=== PATIENT | male | born 1955 | race Caucasian/White ===

== ENCOUNTER 2017-05-18 10:37 | Outpatient (CLI) | payer OTHER ==
[2017-05-18 11:20] LABS: INR-International Normal Ratio 2.2; Prothrombin Time 25.4 SEC (12.0-14.7)
== END 2017-05-18 10:38 | disposition home or self-care (01) ==
LOC: BURLAB 10:37
PROVIDERS: ATTEND Internal Medicine Cardiovascular Disease
DX: Z51.81 Encounter for therapeutic drug level monitoring (principal); I50.9 Heart failure, unspecified; Z95.811 Presence of heart assist device; Z79.01 Long term (current) use of anticoagulants
CPT/HCPCS: 36415; 83615; 85610

== ENCOUNTER 2017-05-29 10:44 | Outpatient (CLI) | payer OTHER ==
[2017-05-29 11:23] LABS: Prothrombin Time 23.1 SEC (12.0-14.7)
== END 2017-05-29 10:45 | disposition home or self-care (01) ==
LOC: BURLAB 10:44
PROVIDERS: ATTEND Internal Medicine Cardiovascular Disease
DX: Z51.81 Encounter for therapeutic drug level monitoring (principal); I50.9 Heart failure, unspecified; Z95.811 Presence of heart assist device; Z79.01 Long term (current) use of anticoagulants
CPT/HCPCS: 36415; 83615; 85610

== ENCOUNTER 2017-06-01 11:35 | Outpatient (CLI) | payer OTHER ==
[2017-06-01 12:02] LABS: INR-International Normal Ratio 2.2; Prothrombin Time 25.2 SEC (12.0-14.7)
== END 2017-06-01 11:36 | disposition home or self-care (01) ==
LOC: BURLAB 11:35
PROVIDERS: ATTEND Internal Medicine Cardiovascular Disease
DX: I50.9 Heart failure, unspecified (principal); Z95.811 Presence of heart assist device
CPT/HCPCS: 36415; 83615; 85610

== ENCOUNTER 2017-06-05 08:59 | Outpatient (CLI) | payer BC, OTHER ==
[2017-06-05 09:29] LABS: INR-International Normal Ratio 1.9; Prothrombin Time 22.2 SEC (12.0-14.7)
== END 2017-06-05 09:00 | disposition home or self-care (01) ==
LOC: BURLAB 08:59
PROVIDERS: ATTEND Internal Medicine Cardiovascular Disease
DX: Z51.81 Encounter for therapeutic drug level monitoring (principal); I50.9 Heart failure, unspecified; Z95.811 Presence of heart assist device; Z79.01 Long term (current) use of anticoagulants
CPT/HCPCS: 36415; 83615; 85610

== ENCOUNTER 2017-06-08 10:22 | Outpatient (CLI) | payer BC ==
[2017-06-08 11:20] LABS: INR-International Normal Ratio 1.9; Prothrombin Time 21.9 SEC (12.0-14.7)
== END 2017-06-08 10:23 | disposition home or self-care (01) ==
LOC: BURLAB 10:22
PROVIDERS: ATTEND Internal Medicine Cardiovascular Disease
DX: I50.9 Heart failure, unspecified (principal); Z95.811 Presence of heart assist device
CPT/HCPCS: 36415; 83615; 85610

== ENCOUNTER 2017-06-22 10:19 | Outpatient (CLI) | payer BC ==
[2017-06-22 11:01] LABS: INR-International Normal Ratio 1.8; Prothrombin Time 21.8 SEC (12.0-14.7)
== END 2017-06-22 10:20 | disposition home or self-care (01) ==
LOC: BURLAB 10:19
PROVIDERS: ATTEND Internal Medicine Cardiovascular Disease
DX: I50.9 Heart failure, unspecified (principal); Z95.811 Presence of heart assist device
CPT/HCPCS: 36415; 83615; 85610

== ENCOUNTER 2017-06-29 09:21 | Outpatient (CLI) | payer BC ==
[2017-06-29 09:48] LABS: Prothrombin Time 23.6 SEC (12.0-14.7)
== END 2017-06-29 09:22 | disposition home or self-care (01) ==
LOC: BURLAB 09:21
PROVIDERS: ATTEND Internal Medicine Cardiovascular Disease
DX: Z51.81 Encounter for therapeutic drug level monitoring (principal); I50.9 Heart failure, unspecified; Z95.811 Presence of heart assist device; Z79.01 Long term (current) use of anticoagulants
CPT/HCPCS: 36415; 83615; 85610

== ENCOUNTER 2020-04-13 21:28 | Emergency (ER) | payer BC ==
--- NOTE | 2020-04-13 22:47 | CT ---
CT BRAIN WITHOUT CONTRAST: Date: 04/13/[address] shows normal sized ventricles with no shift. No intracranial bleeding or extra-axial hematoma seen. There is already some prominent patchy hypolucent areas throughout the deep white mat ter bilaterally suggesting chronic ischemic change. There is no evidence of acute stroke, mass, or ed jenifer. Small strokes would be missed against this background. The skull is normal in appearance and the visible paranasal sinuses and mastoid air cells are clear, except for some minor opacification in th e tip of the right mastoid process. IMPRESSION: No acute intracranial findings. Chronic ischemic changes. POS: HOME
[2020-04-13 22:49] LABS: #Eosinphils 0.1 thou/uL (0.0-0.7); #Lymphocytes 1.2 thou/uL (1.20-3.40); #Monocytes 0.9 thou/uL (0.11-0.59); #Neutrophils 4.8 thou/uL (1.40-6.50); %Basophils 0.6 % (0.0-1.0); %Lymphocytes 17.3 % (21.0-51.0); %Monocytes 12.2 % (0.0-10.0); %Neutrophils 68.9 % (42.0-75.0); Hemoglobin 10.9 g/dL (14.0-18.0); Mean Corpuscular Volume 99.9 fL (78.0-98.0); Mean Platelet Volume 9.5 fL (7.4-10.4); Platelet Count 154 thou/uL (130-400); RBC Distribution Width 12.5 % (11.5-14.5); Red Blood Cell (RBC) Count 3.53 mill/uL (4.70-6.10); White Blood Cell (WBC) Count 6.9 thou/uL (4.8-10.8)
[2020-04-13] MEDS ORDERED: Bacitracin 1 PK ONE (22:53)
[2020-04-13 22:54] LABS: ALT (SGPT) Less than 7 U/L (8-55); AST (SGOT) 16 U/L (5-34); Albumin 4.5 g/dL (3.4-4.8); Alkaline Phosphatase 62 U/L (40-110); Anion Gap 20 mmol/L (10-20); BUN (Urea Nitrogen) 14 mg/dL (8.4-25.7); Bilirubin, Total 1.4 mg/dL (0.2-1.2); Calc. Creatinine Clearance 0 mL/min (70-130); Calcium 10.3 mg/dL (7.8-10.44); Carbon Dioxide 27 mmol/L (23-31); Chloride 95 mmol/L (98-107); Estimated GFR-MDRD 72; Globulin 2.7 g/dL (2.4-3.5); Glucose 128 mg/dL (80-115); Potassium 3.5 mmol/L (3.5-5.1); Protein, Total 7.2 g/dL (5.8-8.1); Sodium 138 mmol/L (136-145)
--- NOTE | 2020-04-13 22:57 | CT ---
CT OF THE CERVICAL SPINE: Date: 04/13/[address] of the cervical spine was performed following trauma. Axial slices were acquired, followed by coronal and sagittal reconstructions. FINDINGS: No fracture, dislocation, or soft tissue swelling seen. There is some mild disc space narrowing at C5 -C6 and C6-C7. The C1 to dens distance is normal. Findings by level follow: C1-C2: No acute findings. C2-C3: There may be a small central bulge of the disc without significant impingement. C3-C4: There may be a small central bulge of this disc without significant impingement. There is mil d left foraminal narrowing. C4-C5: Significant osteophytes causing moderate to severe bilateral foraminal stenosis. The AP diame ter of the spinal canal at this level is approximately 8.0 mm. C5-C6: There is also probably some concentric bulging of this disc with mild left foraminal narrowin g. C6-C7: No acute findings. Mild left foraminal narrowing. C7-T1: No acute findings. T1-T2: No acute findings. Lung apices are clear. IMPRESSION: Prominent degenerative changes as noted, but no acute traumatic fracture seen. Preliminary report called to Dr. Sparks at 2218 hours on 04/13/2020. CODE CR. POS: HOME
--- NOTE | 2020-04-13 23:00 | RAD ---
PORTABLE CHEST: Date: 04/13/2020 An AP portable film at 2020 hours is compared with a 11/10/2016 study done at [facility]. The heart is more normal in size today than it was before. There is no vascular congestion, edema, or gross pleural effusion. Numerous calcifications are seen in the right lower chest which were present previously and had not changed. There is an equivocal patchy infiltrative area just to the left of the aortic arch. I cannot tell if this is real or a confluence of markings. There are some linear infiltrates just above the left heart border which were not present previously. This may be scarring or atelectasis. Clips are noted in th e right axillary region from a prior operative procedure. The mediastinum showed no widening or abnor mality. IMPRESSION: Equivocal patchy infiltrate versus confluence of markings in the left upper lobe near the aortic arch . A follow-up PA film might be useful. Depending upon the patient's symptoms, further imaging may be subsequently needed. CODE T. POS: HOME
[2020-04-13 23:31] LABS: Bilirubin Negative (Negative); Blood, Urine Negative (Negative); Clarity Clear (Clear); Glucose, Urine (Dipstick) Negative (Negative); Ketone, Urine Negative (Negative); Leukocyte Negative (Negative); Nitrite Negative (Negative); Protein, Urine (Dipstick) Negative (Neg-Trace); Specific Gravity, Urine 1.015 (1.005-1.030); Urobilinogen 0.2 mg/dL (Less than 2)
== END 2020-04-13 23:55 | disposition left against medical advice (07) ==
LOC: BURERS 21:28
DX: R55 Syncope and collapse (principal); S01.311A Laceration without foreign body of right ear, initial encounter; S01.01XA Laceration without foreign body of scalp, initial encounter; S60.811A Abrasion of right wrist, initial encounter; I13.2 Hypertensive heart and chronic kidney disease with heart failure and with stage 5 chronic kidney disease, or end stage renal disease; I50.9 Heart failure, unspecified; N18.6 End stage renal disease; Z79.82 Long term (current) use of aspirin; Z79.899 Other long term (current) drug therapy
CPT/HCPCS: 70450; 71045; 72125; 80053; 81003; 84484; 85025; 93005; 94760

== ENCOUNTER 2021-09-08 10:58 | Emergency (ER) | payer BC, MEDICARE ==
[2021-09-08 11:50] LABS: #Basophils 0.1 thou/uL (0.0-0.2); #Lymphocytes 1.1 thou/uL (1.20-3.40); #Monocytes 1.2 thou/uL (0.11-0.59); #Neutrophils 14.1 thou/uL (1.40-6.50); %Basophils 0.5 % (0.0-1.0); %Eosinophils 0.1 % (0.0-10.0); %Lymphocytes 6.9 % (21.0-51.0); %Monocytes 7.2 % (0.0-10.0); %Neutrophils 85.4 % (42.0-75.0); Hemoglobin 11.6 g/dL (14.0-18.0); Mean Corpuscular HGB CONC 32.2 g/dL (32.0-36.0); Mean Corpuscular Hemoglobin 27.2 pg (27.0-31.0); Mean Corpuscular Volume 84.5 fL (78.0-98.0); Mean Platelet Volume 9.1 fL (7.4-10.4); Platelet Count 197 thou/uL (130-400); RBC Distribution Width 14.3 % (11.5-14.5); Red Blood Cell (RBC) Count 4.27 mill/uL (4.70-6.10); White Blood Cell (WBC) Count 16.5 thou/uL (4.8-10.8)
[2021-09-08 12:03] LABS: ALT (SGPT) 11 U/L (8-55); AST (SGOT) 14 U/L (5-34); Albumin 4.1 g/dL (3.4-4.8); Alkaline Phosphatase 66 U/L (40-110); Anion Gap 18 mmol/L (10-20); BUN (Urea Nitrogen) 15 mg/dL (8.4-25.7); Bilirubin, Total 1.5 mg/dL (0.2-1.2); Calc. Creatinine Clearance 0 mL/min (70-130); Calcium 10.2 mg/dL (7.8-10.44); Carbon Dioxide 29 mmol/L (23-31); Chloride 95 mmol/L (98-107); Glucose 174 mg/dL (80-115); Protein, Total 7.1 g/dL (5.8-8.1); Sodium 139 mmol/L (136-145)
[2021-09-08 12:12] LABS: Potassium 2.8 mmol/L (3.5-5.1)
[2021-09-08] MEDS ORDERED: Potassium Chloride 20 MEQ TAB ONE (12:23)
[2021-09-08] MEDS ORDERED: Piperacillin/Tazobactam 4.5 GM VIAL ONE (12:23)
[2021-09-08] MEDS ORDERED: Sodium Chloride 0.9% 100 ML ONE (12:24)
[2021-09-08 12:27] LABS: Prothrombin Time 13.2 sec (12.0-14.7)
[2021-09-08 13:23] LABS: SARS-CoV-2 NAA Rapid Test Not Detected (NotDetected)
[2021-09-08 14:23] LABS: Lactic Acid 2.7 mmol/L (0.5-2.2)
[2021-09-08] MEDS ORDERED: Dexamethasone 4 mg/ml Vial ONE (14:53)
== END 2021-09-08 15:31 | disposition short-term general hospital (02) ==
LOC: BURERS 10:58
DX: J18.9 Pneumonia, unspecified organism (principal); E87.6 Hypokalemia; Z20.822 Contact with and (suspected) exposure to COVID-19; I13.2 Hypertensive heart and chronic kidney disease with heart failure and with stage 5 chronic kidney disease, or end stage renal disease; I50.9 Heart failure, unspecified; E11.22 Type 2 diabetes mellitus with diabetic chronic kidney disease; N18.6 End stage renal disease; Z94.0 Kidney transplant status; Z94.1 Heart transplant status; Z79.82 Long term (current) use of aspirin; Z79.84 Long term (current) use of oral hypoglycemic drugs; Z79.899 Other long term (current) drug therapy
CPT/HCPCS: 36415; 71045; 80053; 83605; 83880; 84484; 85025; 85610; 85730; 87040; 93005; 94760; 96365; 96375; J1100; J2543; J3490; U0002

== ENCOUNTER 2022-12-26 09:43 | Inpatient (IN) | payer MEDICARE, BC ==
[2022-12-26] MEDS ORDERED: Acetaminophen 500 MG TAB PO PRN (16:07)
[2022-12-26] MEDS ORDERED: Polyethylene Glycol 3350 17 GM Packet PO PRN (16:07)
[2022-12-26] MEDS ORDERED: Fluticasone Propionate Nasal Spray 16 gm Bottle NASAL PRN (16:07)
[2022-12-26] MEDS ORDERED: Bisacodyl 5 MG TAB PO PRN (16:11)
[2022-12-26] MEDS ORDERED: Bisacodyl 10 MG SUPP PR PRN (16:11)
[2022-12-26] MEDS ORDERED: Acetaminophen 325 MG TAB PO PRN (16:11)
[2022-12-26 16:26] VITALS: BMI 17.2
[2022-12-26] MEDS ORDERED: Dextrose 5% in Water 1,000 ML IV PRN (16:54)
[2022-12-26] MEDS ORDERED: Dextrose 50% Abboject 50 ML SYRINGE SLOW IVP PRN (16:54)
[2022-12-26] MEDS ORDERED: HumaLOG 300 UNITS/3 ML VIAL SC PRN (16:54)
[2022-12-26] MEDS: metFORMIN 500 MG TAB PO SCH (18:43)
[2022-12-26] MEDS: Tamsulosin HCl 0.4 MG CAP PO SCH (18:43)
[2022-12-26] MEDS: Atorvastatin Calcium 40 MG TAB PO SCH (21:44)
[2022-12-26] MEDS: Mirtazapine 15 MG TAB PO SCH (21:44)
[2022-12-26] MEDS: Carbidopa/Levodopa 25-100 mg Tablet PO SCH (21:45)
[2022-12-26] MEDS: Cefepime 1 GM in Sodium Chloride 0.9% 100 ML IVPB SCH (21:46)
[2022-12-26] MEDS: Hydrocortisone 10 mg Tablet PO SCH (21:46)
[2022-12-26] MEDS: Magnesium Oxide 400 MG TAB PO SCH (21:46)
[2022-12-26] MEDS ORDERED: Cefepime 1 GM VIAL IVPB SCH (22:00)
[2022-12-27 05:47] LABS: ALT (SGPT) 19 U/L (8-55); AST (SGOT) 22 U/L (5-34); Albumin 3.6 g/dL (3.4-4.8); Alkaline Phosphatase 87 U/L (40-110); Anion Gap 12 mmol/L (10-20); BUN (Urea Nitrogen) 16 mg/dL (8.4-25.7); Bilirubin, Total 0.4 mg/dL (0.2-1.2); Calc. Creatinine Clearance 80 mL/min (70-130); Calcium 9.1 mg/dL (7.8-10.44); Carbon Dioxide 25 mmol/L (23-31); Chloride 108 mmol/L (98-107); Estimated GFR 100; Globulin 3.6 g/dL (2.4-3.5); Glucose 164 mg/dL (80-115); Potassium 3.3 mmol/L (3.5-5.1); Protein, Total 7.2 g/dL (5.8-8.1); Sodium 142 mmol/L (136-145)
[2022-12-27 05:49] LABS: Hemoglobin 9.3 g/dL (14.0-18.0); Mean Corpuscular HGB CONC 32.6 g/dL (32.0-36.0); Mean Corpuscular Hemoglobin 27.2 pg (27.0-31.0); Mean Corpuscular Volume 83.4 fl (78.0-98.0); Mean Platelet Volume 9.7 fL (7.4-10.4); Platelet Count 216 10x3/uL (130-400); RBC Distribution Width 19.2 % (11.5-14.5); Red Blood Cell (RBC) Count 3.43 mill/uL (4.70-6.10); White Blood Cell (WBC) Count 6.7 10x3/uL (4.8-10.8)
[2022-12-27] MEDS: Cefepime 1 GM in Sodium Chloride 0.9% 100 ML IVPB SCH ×3 (05:50→22:00)
[2022-12-27 05:53] LABS: #Basophils 0.1 thou/uL (0.0-0.2); #Eosinphils 0.1 thou/uL (0.0-0.7); #Lymphocytes 1.3 thou/uL (1.20-3.40); #Monocytes 0.7 thou/uL (0.11-0.59); #Neutrophils 4.6 thou/uL (1.40-6.50); %Eosinophils 1.6 % (0.0-10.0); %Lymphocytes 19.6 % (21.0-51.0); %Monocytes 9.8 % (0.0-10.0)
[2022-12-27] MEDS: Multivit, Therapeutic 1 TAB PO SCH (08:30)
[2022-12-27] MEDS: Cyanocobalamin (Vitamin B-12) 1,000 MCG TAB PO SCH (08:30)
[2022-12-27] MEDS: Floranex 1 GM Packet PO SCH (08:30)
[2022-12-27] MEDS: metFORMIN 500 MG TAB PO SCH ×2 (08:32→17:27)
[2022-12-27] MEDS: Carbidopa/Levodopa 25-100 mg Tablet PO SCH ×3 (08:33→22:02)
[2022-12-27] MEDS: Calcium Carbonate 500 MG TAB PO SCH (08:33)
[2022-12-27] MEDS: Aspirin 81 mg Enteric Coated Tablet PO SCH (08:33)
[2022-12-27] MEDS: Alogliptin 25 MG TAB PO SCH (08:33)
[2022-12-27] MEDS: Hydrocortisone 10 mg Tablet PO SCH ×2 (08:37→22:03)
[2022-12-27] MEDS: Magnesium Oxide 400 MG TAB PO SCH ×2 (08:37→22:02)
[2022-12-27] MEDS: PATIENT'S HOME MEDICATION PO SCH (08:40)
[2022-12-27] MEDS ORDERED: Non-Formulary Item 1 EACH (Lactobacillus Rhamnosus Gg [Culturelle] 1 CAPSULE Capsule) PO SCH (09:00)
[2022-12-27] MEDS: HumaLOG 300 UNITS/3 ML VIAL SC PRN (17:25)
[2022-12-27] MEDS: Tamsulosin HCl 0.4 MG CAP PO SCH (17:26)
[2022-12-27] MEDS: Mirtazapine 15 MG TAB PO SCH (22:01)
[2022-12-27] MEDS: Atorvastatin Calcium 40 MG TAB PO SCH (22:02)
[2022-12-28] MEDS: Cefepime 1 GM in Sodium Chloride 0.9% 100 ML IVPB SCH ×3 (05:55→21:16)
[2022-12-28] MEDS: metFORMIN 500 MG TAB PO SCH ×2 (09:44→16:36)
[2022-12-28] MEDS: Calcium Carbonate 500 MG TAB PO SCH (09:44)
[2022-12-28] MEDS: Cyanocobalamin (Vitamin B-12) 1,000 MCG TAB PO SCH (09:45)
[2022-12-28] MEDS: Aspirin 81 mg Enteric Coated Tablet PO SCH (09:45)
[2022-12-28] MEDS: Alogliptin 25 MG TAB PO SCH (09:45)
[2022-12-28] MEDS: Carbidopa/Levodopa 25-100 mg Tablet PO SCH ×3 (09:46→21:14)
[2022-12-28] MEDS: Floranex 1 GM Packet PO SCH (09:46)
[2022-12-28] MEDS: Multivit, Therapeutic 1 TAB PO SCH (09:46)
[2022-12-28] MEDS: Hydrocortisone 10 mg Tablet PO SCH ×2 (09:49→21:14)
[2022-12-28] MEDS: Magnesium Oxide 400 MG TAB PO SCH ×2 (09:50→21:14)
[2022-12-28] MEDS: PATIENT'S HOME MEDICATION PO SCH (09:53)
[2022-12-28] MEDS: HumaLOG 300 UNITS/3 ML VIAL SC PRN (12:07)
[2022-12-28] MEDS: Tamsulosin HCl 0.4 MG CAP PO SCH (16:36)
[2022-12-28] MEDS: Mirtazapine 15 MG TAB PO SCH (21:13)
[2022-12-28] MEDS: Atorvastatin Calcium 40 MG TAB PO SCH (21:13)
[2022-12-29] MEDS: Cefepime 1 GM in Sodium Chloride 0.9% 100 ML IVPB SCH ×3 (05:09→21:32)
[2022-12-29] MEDS: metFORMIN 500 MG TAB PO SCH ×2 (08:32→17:50)
[2022-12-29] MEDS: Aspirin 81 mg Enteric Coated Tablet PO SCH (08:32)
[2022-12-29] MEDS: Multivit, Therapeutic 1 TAB PO SCH (08:32)
[2022-12-29] MEDS: Sulfameth/Trimethoprim DS 800-160mg TAB PO SCH (08:33)
[2022-12-29] MEDS: Cyanocobalamin (Vitamin B-12) 1,000 MCG TAB PO SCH (08:33)
[2022-12-29] MEDS: Calcium Carbonate 500 MG TAB PO SCH (08:33)
[2022-12-29] MEDS: Alogliptin 25 MG TAB PO SCH (08:33)
[2022-12-29] MEDS: Carbidopa/Levodopa 25-100 mg Tablet PO SCH ×3 (08:33→21:37)
[2022-12-29] MEDS: Floranex 1 GM Packet PO SCH (08:33)
[2022-12-29] MEDS: Magnesium Oxide 400 MG TAB PO SCH ×2 (08:33→21:36)
[2022-12-29] MEDS: Potassium Chloride 10 MEQ TAB PO SCH (08:33)
[2022-12-29] MEDS: Hydrocortisone 10 mg Tablet PO SCH ×2 (08:34→21:36)
[2022-12-29] MEDS: Ergocalciferol 1.25 MG(50,000 UNITS) CAP PO SCH (08:38)
[2022-12-29] MEDS: PATIENT'S HOME MEDICATION PO SCH (08:43)
[2022-12-29] MEDS: HumaLOG 300 UNITS/3 ML VIAL SC PRN (12:36)
[2022-12-29] MEDS: Tamsulosin HCl 0.4 MG CAP PO SCH (17:50)
[2022-12-29] MEDS: Mirtazapine 15 MG TAB PO SCH (21:35)
[2022-12-29] MEDS: Atorvastatin Calcium 40 MG TAB PO SCH (21:36)
[2022-12-30] MEDS: Cefepime 1 GM in Sodium Chloride 0.9% 100 ML IVPB SCH ×3 (05:33→20:57)
[2022-12-30] MEDS: Potassium Chloride 10 MEQ TAB PO SCH (09:39)
[2022-12-30] MEDS: Multivit, Therapeutic 1 TAB PO SCH (09:39)
[2022-12-30] MEDS: metFORMIN 500 MG TAB PO SCH ×2 (09:39→17:28)
[2022-12-30] MEDS: Alogliptin 25 MG TAB PO SCH (09:39)
[2022-12-30] MEDS: Floranex 1 GM Packet PO SCH (09:39)
[2022-12-30] MEDS: Calcium Carbonate 500 MG TAB PO SCH (09:40)
[2022-12-30] MEDS: Magnesium Oxide 400 MG TAB PO SCH ×2 (09:40→20:54)
[2022-12-30] MEDS: Carbidopa/Levodopa 25-100 mg Tablet PO SCH ×3 (09:40→20:54)
[2022-12-30] MEDS: Aspirin 81 mg Enteric Coated Tablet PO SCH (09:40)
[2022-12-30] MEDS: Cyanocobalamin (Vitamin B-12) 1,000 MCG TAB PO SCH (09:41)
[2022-12-30] MEDS: Hydrocortisone 10 mg Tablet PO SCH ×2 (09:41→20:55)
[2022-12-30] MEDS: PATIENT'S HOME MEDICATION PO SCH (09:43)
[2022-12-30] MEDS: Loperamide HCl 2 MG CAP PO PRN ×2 (16:29→20:54)
[2022-12-30] MEDS: Tamsulosin HCl 0.4 MG CAP PO SCH (17:28)
[2022-12-30] MEDS: HumaLOG 300 UNITS/3 ML VIAL SC PRN (18:11)
[2022-12-30] MEDS: Atorvastatin Calcium 40 MG TAB PO SCH (20:53)
[2022-12-30] MEDS: Mirtazapine 15 MG TAB PO SCH (20:54)
[2022-12-31] MEDS: Cefepime 1 GM in Sodium Chloride 0.9% 100 ML IVPB SCH ×3 (05:33→21:06)
[2022-12-31] MEDS: Multivit, Therapeutic 1 TAB PO SCH (09:16)
[2022-12-31] MEDS: Aspirin 81 mg Enteric Coated Tablet PO SCH (09:16)
[2022-12-31] MEDS: metFORMIN 500 MG TAB PO SCH ×2 (09:16→17:07)
[2022-12-31] MEDS: Floranex 1 GM Packet PO SCH (09:17)
[2022-12-31] MEDS: Alogliptin 25 MG TAB PO SCH (09:17)
[2022-12-31] MEDS: Sulfameth/Trimethoprim DS 800-160mg TAB PO SCH (09:18)
[2022-12-31] MEDS: Carbidopa/Levodopa 25-100 mg Tablet PO SCH ×3 (09:18→21:07)
[2022-12-31] MEDS: Cyanocobalamin (Vitamin B-12) 1,000 MCG TAB PO SCH (09:18)
[2022-12-31] MEDS: Calcium Carbonate 500 MG TAB PO SCH (09:18)
[2022-12-31] MEDS: Hydrocortisone 10 mg Tablet PO SCH ×2 (09:19→21:07)
[2022-12-31] MEDS: SIROLIMUS 0.5 MG TABLET PO SCH (09:32)
[2022-12-31] MEDS: SIROLIMUS 1 MG TABLET PO SCH (09:34)
[2022-12-31] MEDS: Magnesium Oxide 400 MG TAB PO SCH ×2 (09:36→21:06)
[2022-12-31] MEDS: Tamsulosin HCl 0.4 MG CAP PO SCH (17:07)
[2022-12-31] MEDS: Atorvastatin Calcium 40 MG TAB PO SCH (21:06)
[2022-12-31] MEDS: Mirtazapine 15 MG TAB PO SCH (21:07)
[2023-01-01] MEDS: Cefepime 1 GM in Sodium Chloride 0.9% 100 ML IVPB SCH ×3 (05:35→21:28)
[2023-01-01] MEDS: Alogliptin 25 MG TAB PO SCH (09:23)
[2023-01-01] MEDS: metFORMIN 500 MG TAB PO SCH ×2 (09:24→17:16)
[2023-01-01] MEDS: Multivit, Therapeutic 1 TAB PO SCH (09:24)
[2023-01-01] MEDS: Hydrocortisone 10 mg Tablet PO SCH ×2 (09:25→21:27)
[2023-01-01] MEDS: Carbidopa/Levodopa 25-100 mg Tablet PO SCH ×3 (09:26→21:13)
[2023-01-01] MEDS: Aspirin 81 mg Enteric Coated Tablet PO SCH (09:26)
[2023-01-01] MEDS: Cyanocobalamin (Vitamin B-12) 1,000 MCG TAB PO SCH (09:26)
[2023-01-01] MEDS: Floranex 1 GM Packet PO SCH (09:26)
[2023-01-01] MEDS: SIROLIMUS 1 MG TABLET PO SCH (09:29)
[2023-01-01] MEDS: SIROLIMUS 0.5 MG TABLET PO SCH (09:30)
[2023-01-01] MEDS: Calcium Carbonate 500 MG TAB PO SCH (09:34)
[2023-01-01] MEDS: Magnesium Oxide 400 MG TAB PO SCH ×2 (09:35→21:14)
[2023-01-01] MEDS: Tamsulosin HCl 0.4 MG CAP PO SCH (17:16)
[2023-01-01] MEDS: Atorvastatin Calcium 40 MG TAB PO SCH (21:13)
[2023-01-01] MEDS: Mirtazapine 15 MG TAB PO SCH (21:16)
[2023-01-02 05:29] LABS: Potassium 3.6 mmol/L (3.5-5.1)
[2023-01-02] MEDS: Cefepime 1 GM in Sodium Chloride 0.9% 100 ML IVPB SCH ×3 (06:01→21:14)
[2023-01-02] MEDS: Hydrocortisone 10 mg Tablet PO SCH ×2 (09:28→21:15)
[2023-01-02] MEDS: Alogliptin 25 MG TAB PO SCH (09:28)
[2023-01-02] MEDS: Multivit, Therapeutic 1 TAB PO SCH (09:29)
[2023-01-02] MEDS: Floranex 1 GM Packet PO SCH (09:30)
[2023-01-02] MEDS: Magnesium Oxide 400 MG TAB PO SCH ×2 (09:31→21:15)
[2023-01-02] MEDS: Calcium Carbonate 500 MG TAB PO SCH (09:32)
[2023-01-02] MEDS: Carbidopa/Levodopa 25-100 mg Tablet PO SCH ×3 (09:32→21:15)
[2023-01-02] MEDS: Sulfameth/Trimethoprim DS 800-160mg TAB PO SCH (09:34)
[2023-01-02] MEDS: Aspirin 81 mg Enteric Coated Tablet PO SCH (09:35)
[2023-01-02] MEDS: SIROLIMUS 0.5 MG TABLET PO SCH (09:36)
[2023-01-02] MEDS: SIROLIMUS 1 MG TABLET PO SCH (09:36)
[2023-01-02] MEDS: Cyanocobalamin (Vitamin B-12) 1,000 MCG TAB PO SCH (09:40)
[2023-01-02] MEDS: metFORMIN 500 MG TAB PO SCH ×2 (09:41→17:22)
[2023-01-02] MEDS: Tamsulosin HCl 0.4 MG CAP PO SCH (17:22)
[2023-01-02] MEDS: Atorvastatin Calcium 40 MG TAB PO SCH (21:14)
[2023-01-02] MEDS: Mirtazapine 15 MG TAB PO SCH (21:15)
[2023-01-03] MEDS: Cefepime 1 GM in Sodium Chloride 0.9% 100 ML IVPB SCH ×3 (05:26→21:11)
[2023-01-03] MEDS: metFORMIN 500 MG TAB PO SCH ×2 (08:43→17:26)
[2023-01-03] MEDS: Carbidopa/Levodopa 25-100 mg Tablet PO SCH ×3 (08:44→21:11)
[2023-01-03] MEDS: Hydrocortisone 10 mg Tablet PO SCH ×2 (08:44→21:15)
[2023-01-03] MEDS: Multivit, Therapeutic 1 TAB PO SCH (08:45)
[2023-01-03] MEDS: Calcium Carbonate 500 MG TAB PO SCH (08:45)
[2023-01-03] MEDS: Floranex 1 GM Packet PO SCH (08:45)
[2023-01-03] MEDS: Alogliptin 25 MG TAB PO SCH (08:46)
[2023-01-03] MEDS: Magnesium Oxide 400 MG TAB PO SCH ×2 (08:46→21:14)
[2023-01-03] MEDS: Cyanocobalamin (Vitamin B-12) 1,000 MCG TAB PO SCH (08:46)
[2023-01-03] MEDS: SIROLIMUS 1 MG TABLET PO SCH (08:47)
[2023-01-03] MEDS: SIROLIMUS 0.5 MG TABLET PO SCH (08:47)
[2023-01-03] MEDS: Aspirin 81 mg Enteric Coated Tablet PO SCH (08:51)
[2023-01-03] MEDS: Loperamide HCl 2 MG CAP PO PRN (11:04)
[2023-01-03] MEDS: Tamsulosin HCl 0.4 MG CAP PO SCH (17:26)
[2023-01-03] MEDS: Atorvastatin Calcium 40 MG TAB PO SCH (21:11)
[2023-01-03] MEDS: Mirtazapine 15 MG TAB PO SCH (21:13)
[2023-01-04] MEDS: Cefepime 1 GM in Sodium Chloride 0.9% 100 ML IVPB SCH ×3 (05:14→21:25)
[2023-01-04] MEDS: SIROLIMUS 1 MG TABLET PO SCH (08:32)
[2023-01-04] MEDS: SIROLIMUS 0.5 MG TABLET PO SCH (08:32)
[2023-01-04] MEDS: Hydrocortisone 10 mg Tablet PO SCH ×2 (08:33→21:22)
[2023-01-04] MEDS: Sulfameth/Trimethoprim DS 800-160mg TAB PO SCH (08:33)
[2023-01-04] MEDS: Calcium Carbonate 500 MG TAB PO SCH (08:33)
[2023-01-04] MEDS: Carbidopa/Levodopa 25-100 mg Tablet PO SCH ×3 (08:33→21:22)
[2023-01-04] MEDS: Alogliptin 25 MG TAB PO SCH (08:34)
[2023-01-04] MEDS: Aspirin 81 mg Enteric Coated Tablet PO SCH (08:34)
[2023-01-04] MEDS: metFORMIN 500 MG TAB PO SCH ×2 (08:34→16:57)
[2023-01-04] MEDS: Magnesium Oxide 400 MG TAB PO SCH ×2 (08:34→21:23)
[2023-01-04] MEDS: Cyanocobalamin (Vitamin B-12) 1,000 MCG TAB PO SCH (08:34)
[2023-01-04] MEDS: Multivit, Therapeutic 1 TAB PO SCH (08:34)
[2023-01-04] MEDS: Floranex 1 GM Packet PO SCH (08:34)
[2023-01-04] MEDS: Loperamide HCl 2 MG CAP PO PRN (12:28)
[2023-01-04] MEDS: Tamsulosin HCl 0.4 MG CAP PO SCH (16:57)
[2023-01-04] MEDS: Atorvastatin Calcium 40 MG TAB PO SCH (21:22)
[2023-01-04] MEDS: Mirtazapine 15 MG TAB PO SCH (21:24)
[2023-01-05] MEDS: Cefepime 1 GM in Sodium Chloride 0.9% 100 ML IVPB SCH ×3 (05:28→21:33)
[2023-01-05 05:40] LABS: Anion Gap 14 mmol/L (10-20); BUN (Urea Nitrogen) 18 mg/dL (8.4-25.7); Calc. Creatinine Clearance 80 mL/min (70-130); Calcium 9.4 mg/dL (7.8-10.44); Carbon Dioxide 26 mmol/L (23-31); Chloride 104 mmol/L (98-107); Estimated GFR 100; Glucose 108 mg/dL (80-115); Potassium 3.6 mmol/L (3.5-5.1); Sodium 140 mmol/L (136-145)
[2023-01-05 05:51] LABS: #Basophils 0.1 thou/uL (0.0-0.2); #Eosinphils 0.2 thou/uL (0.0-0.7); #Lymphocytes 1.4 thou/uL (1.20-3.40); #Monocytes 0.8 thou/uL (0.11-0.59); #Neutrophils 4.4 thou/uL (1.40-6.50); %Basophils 1.6 % (0.0-1.0); %Eosinophils 2.7 % (0.0-10.0); %Lymphocytes 20.5 % (21.0-51.0); %Monocytes 11.2 % (0.0-10.0); Mean Corpuscular Hemoglobin 26.6 pg (27.0-31.0); Mean Corpuscular Volume 85.8 fl (78.0-98.0); Mean Platelet Volume 9.8 fL (7.4-10.4); Platelet Count 178 10x3/uL (130-400); RBC Distribution Width 19.2 % (11.5-14.5); Red Blood Cell (RBC) Count 3.76 mill/uL (4.70-6.10); White Blood Cell (WBC) Count 6.8 10x3/uL (4.8-10.8)
[2023-01-05 07:11] LABS: Burr Cells SLIGHT = 2-5 cells (100X) (0-1/hpf); Crenated RBC SLIGHT = 1-5 cells (100X) (None Seen); MDiff Complete? YES; Platelet Morphology Comment Appears Increased
[2023-01-05] MEDS: SIROLIMUS 0.5 MG TABLET PO SCH (08:10)
[2023-01-05] MEDS: SIROLIMUS 1 MG TABLET PO SCH (08:10)
[2023-01-05] MEDS: metFORMIN 500 MG TAB PO SCH ×2 (08:11→17:09)
[2023-01-05] MEDS: Ergocalciferol 1.25 MG(50,000 UNITS) CAP PO SCH (08:11)
[2023-01-05] MEDS: Cyanocobalamin (Vitamin B-12) 1,000 MCG TAB PO SCH (08:11)
[2023-01-05] MEDS: Alogliptin 25 MG TAB PO SCH (08:11)
[2023-01-05] MEDS: Aspirin 81 mg Enteric Coated Tablet PO SCH (08:11)
[2023-01-05] MEDS: Hydrocortisone 10 mg Tablet PO SCH ×2 (08:11→21:35)
[2023-01-05] MEDS: Calcium Carbonate 500 MG TAB PO SCH (08:12)
[2023-01-05] MEDS: Magnesium Oxide 400 MG TAB PO SCH ×2 (08:12→21:34)
[2023-01-05] MEDS: Floranex 1 GM Packet PO SCH (08:13)
[2023-01-05] MEDS: Multivit, Therapeutic 1 TAB PO SCH (08:13)
[2023-01-05] MEDS: Carbidopa/Levodopa 25-100 mg Tablet PO SCH ×3 (08:13→21:34)
[2023-01-05] MEDS: Sulfameth/Trimethoprim DS 800-160mg TAB PO SCH (08:46)
[2023-01-05] MEDS: Tamsulosin HCl 0.4 MG CAP PO SCH (17:09)
[2023-01-05] MEDS: Atorvastatin Calcium 40 MG TAB PO SCH (21:34)
[2023-01-05] MEDS: Mirtazapine 15 MG TAB PO SCH (21:35)
[2023-01-06] MEDS: Cefepime 1 GM in Sodium Chloride 0.9% 100 ML IVPB SCH ×3 (05:50→21:28)
[2023-01-06] MEDS: SIROLIMUS 0.5 MG TABLET PO SCH (08:38)
[2023-01-06] MEDS: metFORMIN 500 MG TAB PO SCH ×2 (08:39→16:52)
[2023-01-06] MEDS: SIROLIMUS 1 MG TABLET PO SCH (08:39)
[2023-01-06] MEDS: Magnesium Oxide 400 MG TAB PO SCH ×2 (08:40→20:41)
[2023-01-06] MEDS: Hydrocortisone 10 mg Tablet PO SCH ×2 (08:40→20:42)
[2023-01-06] MEDS: Calcium Carbonate 500 MG TAB PO SCH (08:40)
[2023-01-06] MEDS: Floranex 1 GM Packet PO SCH (08:40)
[2023-01-06] MEDS: Carbidopa/Levodopa 25-100 mg Tablet PO SCH ×3 (08:40→20:42)
[2023-01-06] MEDS: Cyanocobalamin (Vitamin B-12) 1,000 MCG TAB PO SCH (08:40)
[2023-01-06] MEDS: Alogliptin 25 MG TAB PO SCH (08:40)
[2023-01-06] MEDS: Multivit, Therapeutic 1 TAB PO SCH (08:40)
[2023-01-06] MEDS: Loratadine 10 MG TAB PO PRN (08:40)
[2023-01-06] MEDS: Aspirin 81 mg Enteric Coated Tablet PO SCH (08:40)
[2023-01-06] MEDS: Loperamide HCl 2 MG CAP PO PRN (15:53)
[2023-01-06] MEDS: Tamsulosin HCl 0.4 MG CAP PO SCH (16:52)
[2023-01-06] MEDS: Atorvastatin Calcium 40 MG TAB PO SCH (20:41)
[2023-01-06] MEDS: Mirtazapine 15 MG TAB PO SCH (20:43)
[2023-01-07] MEDS: Cefepime 1 GM in Sodium Chloride 0.9% 100 ML IVPB SCH ×3 (05:31→21:13)
[2023-01-07] MEDS: Floranex 1 GM Packet PO SCH (09:01)
[2023-01-07] MEDS: metFORMIN 500 MG TAB PO SCH ×2 (09:01→17:21)
[2023-01-07] MEDS: Hydrocortisone 10 mg Tablet PO SCH ×2 (09:01→21:14)
[2023-01-07] MEDS: Aspirin 81 mg Enteric Coated Tablet PO SCH (09:02)
[2023-01-07] MEDS: Alogliptin 25 MG TAB PO SCH (09:02)
[2023-01-07] MEDS: Carbidopa/Levodopa 25-100 mg Tablet PO SCH ×3 (09:02→21:14)
[2023-01-07] MEDS: Sulfameth/Trimethoprim DS 800-160mg TAB PO SCH (09:03)
[2023-01-07] MEDS: Magnesium Oxide 400 MG TAB PO SCH ×2 (09:03→21:14)
[2023-01-07] MEDS: Multivit, Therapeutic 1 TAB PO SCH (09:03)
[2023-01-07] MEDS: Cyanocobalamin (Vitamin B-12) 1,000 MCG TAB PO SCH (09:03)
[2023-01-07] MEDS: Calcium Carbonate 500 MG TAB PO SCH (09:03)
[2023-01-07] MEDS: SIROLIMUS 1 MG TABLET PO SCH (10:44)
[2023-01-07] MEDS: SIROLIMUS 0.5 MG TABLET PO SCH (10:45)
[2023-01-07] MEDS: Loperamide HCl 2 MG CAP PO PRN (16:10)
[2023-01-07] MEDS: Tamsulosin HCl 0.4 MG CAP PO SCH (17:21)
[2023-01-07] MEDS: Mirtazapine 15 MG TAB PO SCH (21:14)
[2023-01-07] MEDS: Atorvastatin Calcium 40 MG TAB PO SCH (21:14)
[2023-01-08] MEDS: Cefepime 1 GM in Sodium Chloride 0.9% 100 ML IVPB SCH ×3 (05:33→21:34)
[2023-01-08] MEDS: SIROLIMUS 0.5 MG TABLET PO SCH (08:45)
[2023-01-08] MEDS: SIROLIMUS 1 MG TABLET PO SCH (08:46)
[2023-01-08] MEDS: metFORMIN 500 MG TAB PO SCH ×2 (08:46→17:46)
[2023-01-08] MEDS: Magnesium Oxide 400 MG TAB PO SCH ×2 (08:47→21:32)
[2023-01-08] MEDS: Calcium Carbonate 500 MG TAB PO SCH (08:47)
[2023-01-08] MEDS: Floranex 1 GM Packet PO SCH (08:47)
[2023-01-08] MEDS: Hydrocortisone 10 mg Tablet PO SCH ×2 (08:47→21:32)
[2023-01-08] MEDS: Alogliptin 25 MG TAB PO SCH (08:47)
[2023-01-08] MEDS: Carbidopa/Levodopa 25-100 mg Tablet PO SCH ×3 (08:48→21:32)
[2023-01-08] MEDS: Cyanocobalamin (Vitamin B-12) 1,000 MCG TAB PO SCH (08:48)
[2023-01-08] MEDS: Aspirin 81 mg Enteric Coated Tablet PO SCH (08:48)
[2023-01-08] MEDS: Multivit, Therapeutic 1 TAB PO SCH (08:48)
[2023-01-08] MEDS: Tamsulosin HCl 0.4 MG CAP PO SCH (17:46)
[2023-01-08] MEDS: Atorvastatin Calcium 40 MG TAB PO SCH (21:32)
[2023-01-08] MEDS: Mirtazapine 15 MG TAB PO SCH (21:33)
[2023-01-09] MEDS: Cefepime 1 GM in Sodium Chloride 0.9% 100 ML IVPB SCH ×3 (05:32→21:45)
[2023-01-09] MEDS: metFORMIN 500 MG TAB PO SCH ×2 (09:19→17:11)
[2023-01-09] MEDS: Alogliptin 25 MG TAB PO SCH (09:19)
[2023-01-09] MEDS: Magnesium Oxide 400 MG TAB PO SCH ×2 (09:19→21:45)
[2023-01-09] MEDS: Floranex 1 GM Packet PO SCH (09:20)
[2023-01-09] MEDS: Cyanocobalamin (Vitamin B-12) 1,000 MCG TAB PO SCH (09:20)
[2023-01-09] MEDS: Sulfameth/Trimethoprim DS 800-160mg TAB PO SCH (09:20)
[2023-01-09] MEDS: Calcium Carbonate 500 MG TAB PO SCH (09:20)
[2023-01-09] MEDS: Multivit, Therapeutic 1 TAB PO SCH (09:20)
[2023-01-09] MEDS: Aspirin 81 mg Enteric Coated Tablet PO SCH (09:20)
[2023-01-09] MEDS: Carbidopa/Levodopa 25-100 mg Tablet PO SCH ×3 (09:20→21:44)
[2023-01-09] MEDS: Hydrocortisone 10 mg Tablet PO SCH ×2 (09:21→21:44)
[2023-01-09] MEDS: SIROLIMUS 1 MG TABLET PO SCH (09:23)
[2023-01-09] MEDS: SIROLIMUS 0.5 MG TABLET PO SCH (09:23)
[2023-01-09] MEDS: Tamsulosin HCl 0.4 MG CAP PO SCH (17:11)
[2023-01-09] MEDS: Atorvastatin Calcium 40 MG TAB PO SCH (21:44)
[2023-01-09] MEDS: Mirtazapine 15 MG TAB PO SCH (21:45)
[2023-01-10] MEDS: Loperamide HCl 2 MG CAP PO PRN (00:34)
[2023-01-10] MEDS: Cefepime 1 GM in Sodium Chloride 0.9% 100 ML IVPB SCH ×3 (05:29→21:56)
[2023-01-10] MEDS: metFORMIN 500 MG TAB PO SCH ×2 (08:40→19:17)
[2023-01-10] MEDS: Aspirin 81 mg Enteric Coated Tablet PO SCH (09:25)
[2023-01-10] MEDS: Alogliptin 25 MG TAB PO SCH (09:25)
[2023-01-10] MEDS: Floranex 1 GM Packet PO SCH (09:25)
[2023-01-10] MEDS: Hydrocortisone 10 mg Tablet PO SCH ×2 (09:26→21:58)
[2023-01-10] MEDS: Cyanocobalamin (Vitamin B-12) 1,000 MCG TAB PO SCH (09:28)
[2023-01-10] MEDS: Calcium Carbonate 500 MG TAB PO SCH (09:28)
[2023-01-10] MEDS: Carbidopa/Levodopa 25-100 mg Tablet PO SCH ×3 (09:28→21:58)
[2023-01-10] MEDS: Magnesium Oxide 400 MG TAB PO SCH ×2 (09:29→21:57)
[2023-01-10] MEDS: Multivit, Therapeutic 1 TAB PO SCH (09:29)
[2023-01-10] MEDS: SIROLIMUS 1 MG TABLET PO SCH (09:35)
[2023-01-10] MEDS: SIROLIMUS 0.5 MG TABLET PO SCH (09:36)
[2023-01-10] MEDS: Tamsulosin HCl 0.4 MG CAP PO SCH (19:17)
[2023-01-10] MEDS: Mirtazapine 15 MG TAB PO SCH (21:57)
[2023-01-10] MEDS: Atorvastatin Calcium 40 MG TAB PO SCH (21:57)
[2023-01-11] MEDS: Cefepime 1 GM in Sodium Chloride 0.9% 100 ML IVPB SCH ×3 (05:43→21:20)
[2023-01-11] MEDS: SIROLIMUS 0.5 MG TABLET PO SCH (09:57)
[2023-01-11] MEDS: SIROLIMUS 1 MG TABLET PO SCH (09:57)
[2023-01-11] MEDS: Hydrocortisone 10 mg Tablet PO SCH ×2 (09:59→21:22)
[2023-01-11] MEDS: Magnesium Oxide 400 MG TAB PO SCH ×2 (09:59→21:22)
[2023-01-11] MEDS: Multivit, Therapeutic 1 TAB PO SCH (09:59)
[2023-01-11] MEDS: Alogliptin 25 MG TAB PO SCH (09:59)
[2023-01-11] MEDS: Floranex 1 GM Packet PO SCH (09:59)
[2023-01-11] MEDS: Aspirin 81 mg Enteric Coated Tablet PO SCH (10:00)
[2023-01-11] MEDS: Carbidopa/Levodopa 25-100 mg Tablet PO SCH ×3 (10:00→21:22)
[2023-01-11] MEDS: Cyanocobalamin (Vitamin B-12) 1,000 MCG TAB PO SCH (10:00)
[2023-01-11] MEDS: Calcium Carbonate 500 MG TAB PO SCH (10:00)
[2023-01-11] MEDS: metFORMIN 500 MG TAB PO SCH ×2 (10:00→17:06)
[2023-01-11] MEDS: Tamsulosin HCl 0.4 MG CAP PO SCH (17:06)
[2023-01-11] MEDS: Mirtazapine 15 MG TAB PO SCH (21:21)
[2023-01-11] MEDS: Atorvastatin Calcium 40 MG TAB PO SCH (21:21)
[2023-01-12] MEDS: Cefepime 1 GM in Sodium Chloride 0.9% 100 ML IVPB SCH ×3 (05:14→21:37)
[2023-01-12 06:02] LABS: #Basophils 0.1 thou/uL (0.0-0.2); #Eosinphils 0.1 thou/uL (0.0-0.7); #Lymphocytes 1.1 thou/uL (1.20-3.40); #Monocytes 0.6 thou/uL (0.11-0.59); #Neutrophils 4.4 thou/uL (1.40-6.50); %Basophils 0.9 % (0.0-1.0); %Eosinophils 1.5 % (0.0-10.0); %Lymphocytes 17.8 % (21.0-51.0); %Monocytes 9.3 % (0.0-10.0); %Neutrophils 70.5 % (42.0-75.0); Mean Corpuscular HGB CONC 30.8 g/dL (32.0-36.0); Mean Corpuscular Hemoglobin 25.8 pg (27.0-31.0); Mean Corpuscular Volume 83.7 fl (78.0-98.0); Mean Platelet Volume 9.9 fL (7.4-10.4); Platelet Count 160 10x3/uL (130-400); RBC Distribution Width 18.7 % (11.5-14.5); Red Blood Cell (RBC) Count 3.87 mill/uL (4.70-6.10); White Blood Cell (WBC) Count 6.3 10x3/uL (4.8-10.8)
[2023-01-12 06:10] LABS: Anion Gap 12 mmol/L (10-20); BUN (Urea Nitrogen) 17 mg/dL (8.4-25.7); Calc. Creatinine Clearance 83 mL/min (70-130); Calcium 9.4 mg/dL (7.8-10.44); Carbon Dioxide 27 mmol/L (23-31); Chloride 104 mmol/L (98-107); Estimated GFR 101; Glucose 129 mg/dL (80-115); Potassium 3.8 mmol/L (3.5-5.1); Sodium 139 mmol/L (136-145)
[2023-01-12] MEDS: metFORMIN 500 MG TAB PO SCH ×2 (08:55→17:08)
[2023-01-12] MEDS: Alogliptin 25 MG TAB PO SCH (08:56)
[2023-01-12] MEDS: Ergocalciferol 1.25 MG(50,000 UNITS) CAP PO SCH (08:56)
[2023-01-12] MEDS: Hydrocortisone 10 mg Tablet PO SCH ×2 (08:56→21:38)
[2023-01-12] MEDS: Sulfameth/Trimethoprim DS 800-160mg TAB PO SCH (08:56)
[2023-01-12] MEDS: Aspirin 81 mg Enteric Coated Tablet PO SCH (08:56)
[2023-01-12] MEDS: Carbidopa/Levodopa 25-100 mg Tablet PO SCH ×3 (08:56→21:38)
[2023-01-12] MEDS: Loratadine 10 MG TAB PO PRN (08:56)
[2023-01-12] MEDS: Calcium Carbonate 500 MG TAB PO SCH (08:56)
[2023-01-12] MEDS: Multivit, Therapeutic 1 TAB PO SCH (08:56)
[2023-01-12] MEDS: Magnesium Oxide 400 MG TAB PO SCH ×2 (08:56→21:37)
[2023-01-12] MEDS: SIROLIMUS 0.5 MG TABLET PO SCH (08:57)
[2023-01-12] MEDS: Floranex 1 GM Packet PO SCH (08:57)
[2023-01-12] MEDS: SIROLIMUS 1 MG TABLET PO SCH (08:57)
[2023-01-12] MEDS: Cyanocobalamin (Vitamin B-12) 1,000 MCG TAB PO SCH (09:01)
[2023-01-12] MEDS: Tamsulosin HCl 0.4 MG CAP PO SCH (17:08)
[2023-01-12] MEDS: Atorvastatin Calcium 40 MG TAB PO SCH (21:37)
[2023-01-12] MEDS: Mirtazapine 15 MG TAB PO SCH (21:38)
[2023-01-13] MEDS: Cefepime 1 GM in Sodium Chloride 0.9% 100 ML IVPB SCH ×3 (05:29→21:22)
[2023-01-13] MEDS: Carbidopa/Levodopa 25-100 mg Tablet PO SCH ×3 (09:23→21:22)
[2023-01-13] MEDS: Magnesium Oxide 400 MG TAB PO SCH ×2 (09:23→21:22)
[2023-01-13] MEDS: Aspirin 81 mg Enteric Coated Tablet PO SCH (09:23)
[2023-01-13] MEDS: Floranex 1 GM Packet PO SCH (09:23)
[2023-01-13] MEDS: Hydrocortisone 10 mg Tablet PO SCH ×2 (09:24→21:22)
[2023-01-13] MEDS: Alogliptin 25 MG TAB PO SCH (09:25)
[2023-01-13] MEDS: metFORMIN 500 MG TAB PO SCH ×2 (09:25→17:30)
[2023-01-13] MEDS: Cyanocobalamin (Vitamin B-12) 1,000 MCG TAB PO SCH (09:25)
[2023-01-13] MEDS: Calcium Carbonate 500 MG TAB PO SCH (09:26)
[2023-01-13] MEDS: Multivit, Therapeutic 1 TAB PO SCH (09:26)
[2023-01-13] MEDS: SIROLIMUS 1 MG TABLET PO SCH (09:28)
[2023-01-13] MEDS: SIROLIMUS 0.5 MG TABLET PO SCH (09:29)
[2023-01-13] MEDS: Tamsulosin HCl 0.4 MG CAP PO SCH (17:30)
[2023-01-13] MEDS: Mirtazapine 15 MG TAB PO SCH (21:22)
[2023-01-13] MEDS: Atorvastatin Calcium 40 MG TAB PO SCH (21:22)
[2023-01-14] MEDS: Cefepime 1 GM in Sodium Chloride 0.9% 100 ML IVPB SCH ×3 (05:12→21:43)
[2023-01-14] MEDS: metFORMIN 500 MG TAB PO SCH ×2 (09:08→17:24)
[2023-01-14] MEDS: Alogliptin 25 MG TAB PO SCH (09:08)
[2023-01-14] MEDS: Floranex 1 GM Packet PO SCH (09:08)
[2023-01-14] MEDS: Cyanocobalamin (Vitamin B-12) 1,000 MCG TAB PO SCH (09:08)
[2023-01-14] MEDS: Multivit, Therapeutic 1 TAB PO SCH (09:08)
[2023-01-14] MEDS: Aspirin 81 mg Enteric Coated Tablet PO SCH (09:09)
[2023-01-14] MEDS: Hydrocortisone 10 mg Tablet PO SCH ×2 (09:11→21:43)
[2023-01-14] MEDS: Magnesium Oxide 400 MG TAB PO SCH ×2 (09:11→21:43)
[2023-01-14] MEDS: Sulfameth/Trimethoprim DS 800-160mg TAB PO SCH (09:11)
[2023-01-14] MEDS: Carbidopa/Levodopa 25-100 mg Tablet PO SCH ×3 (09:12→21:43)
[2023-01-14] MEDS: Calcium Carbonate 500 MG TAB PO SCH (09:13)
[2023-01-14] MEDS: SIROLIMUS 1 MG TABLET PO SCH (09:14)
[2023-01-14] MEDS: SIROLIMUS 0.5 MG TABLET PO SCH (09:15)
[2023-01-14] MEDS: Tamsulosin HCl 0.4 MG CAP PO SCH (17:24)
[2023-01-14] MEDS: Atorvastatin Calcium 40 MG TAB PO SCH (21:43)
[2023-01-14] MEDS: Loperamide HCl 2 MG CAP PO PRN (21:43)
[2023-01-14] MEDS: Mirtazapine 15 MG TAB PO SCH (21:44)
[2023-01-15] MEDS: Cefepime 1 GM in Sodium Chloride 0.9% 100 ML IVPB SCH ×3 (05:27→21:49)
[2023-01-15] MEDS: Multivit, Therapeutic 1 TAB PO SCH (09:04)
[2023-01-15] MEDS: Floranex 1 GM Packet PO SCH (09:04)
[2023-01-15] MEDS: Calcium Carbonate 500 MG TAB PO SCH (09:05)
[2023-01-15] MEDS: Carbidopa/Levodopa 25-100 mg Tablet PO SCH ×3 (09:05→20:42)
[2023-01-15] MEDS: Aspirin 81 mg Enteric Coated Tablet PO SCH (09:05)
[2023-01-15] MEDS: Magnesium Oxide 400 MG TAB PO SCH ×2 (09:05→20:39)
[2023-01-15] MEDS: Hydrocortisone 10 mg Tablet PO SCH ×2 (09:06→20:41)
[2023-01-15] MEDS: Cyanocobalamin (Vitamin B-12) 1,000 MCG TAB PO SCH (09:06)
[2023-01-15] MEDS: Alogliptin 25 MG TAB PO SCH (09:07)
[2023-01-15] MEDS: metFORMIN 500 MG TAB PO SCH ×2 (09:07→17:07)
[2023-01-15] MEDS: SIROLIMUS 1 MG TABLET PO SCH (09:09)
[2023-01-15] MEDS: SIROLIMUS 0.5 MG TABLET PO SCH (09:10)
[2023-01-15] MEDS: Tamsulosin HCl 0.4 MG CAP PO SCH (17:07)
[2023-01-15] MEDS: Atorvastatin Calcium 40 MG TAB PO SCH (20:36)
[2023-01-15] MEDS: Mirtazapine 15 MG TAB PO SCH (20:40)
[2023-01-16] MEDS: Cefepime 1 GM in Sodium Chloride 0.9% 100 ML IVPB SCH ×3 (05:15→21:20)
[2023-01-16] MEDS: metFORMIN 500 MG TAB PO SCH ×2 (09:47→17:20)
[2023-01-16] MEDS: Calcium Carbonate 500 MG TAB PO SCH (09:47)
[2023-01-16] MEDS: Hydrocortisone 10 mg Tablet PO SCH ×2 (09:47→21:18)
[2023-01-16] MEDS: Alogliptin 25 MG TAB PO SCH (09:48)
[2023-01-16] MEDS: Carbidopa/Levodopa 25-100 mg Tablet PO SCH ×3 (09:48→21:19)
[2023-01-16] MEDS: Multivit, Therapeutic 1 TAB PO SCH (09:48)
[2023-01-16] MEDS: Magnesium Oxide 400 MG TAB PO SCH ×2 (09:48→21:18)
[2023-01-16] MEDS: Floranex 1 GM Packet PO SCH (09:49)
[2023-01-16] MEDS: Aspirin 81 mg Enteric Coated Tablet PO SCH (09:49)
[2023-01-16] MEDS: Cyanocobalamin (Vitamin B-12) 1,000 MCG TAB PO SCH (09:49)
[2023-01-16] MEDS: Sulfameth/Trimethoprim DS 800-160mg TAB PO SCH (13:40)
[2023-01-16] MEDS: SIROLIMUS 0.5 MG TABLET PO SCH (13:41)
[2023-01-16] MEDS: SIROLIMUS 1 MG TABLET PO SCH (13:43)
[2023-01-16] MEDS: Tamsulosin HCl 0.4 MG CAP PO SCH (17:24)
[2023-01-16] MEDS: Mirtazapine 15 MG TAB PO SCH (21:19)
[2023-01-16] MEDS: Atorvastatin Calcium 40 MG TAB PO SCH (21:19)
[2023-01-17] MEDS: Cefepime 1 GM in Sodium Chloride 0.9% 100 ML IVPB SCH ×3 (05:32→20:56)
[2023-01-17] MEDS: SIROLIMUS 1 MG TABLET PO SCH (09:32)
[2023-01-17] MEDS: SIROLIMUS 0.5 MG TABLET PO SCH (09:32)
[2023-01-17] MEDS: Multivit, Therapeutic 1 TAB PO SCH (09:33)
[2023-01-17] MEDS: Aspirin 81 mg Enteric Coated Tablet PO SCH (09:33)
[2023-01-17] MEDS: Hydrocortisone 10 mg Tablet PO SCH ×2 (09:33→20:55)
[2023-01-17] MEDS: Carbidopa/Levodopa 25-100 mg Tablet PO SCH ×3 (09:34→20:55)
[2023-01-17] MEDS: Cyanocobalamin (Vitamin B-12) 1,000 MCG TAB PO SCH (09:34)
[2023-01-17] MEDS: Calcium Carbonate 500 MG TAB PO SCH (09:34)
[2023-01-17] MEDS: Alogliptin 25 MG TAB PO SCH (09:34)
[2023-01-17] MEDS: metFORMIN 500 MG TAB PO SCH ×2 (09:34→17:02)
[2023-01-17] MEDS: Magnesium Oxide 400 MG TAB PO SCH ×2 (09:34→20:55)
[2023-01-17] MEDS: Floranex 1 GM Packet PO SCH (09:35)
[2023-01-17] MEDS: Loperamide HCl 2 MG CAP PO PRN ×2 (12:35→17:02)
[2023-01-17] MEDS: Tamsulosin HCl 0.4 MG CAP PO SCH (17:02)
[2023-01-17] MEDS: Atorvastatin Calcium 40 MG TAB PO SCH (20:54)
[2023-01-17] MEDS: Mirtazapine 15 MG TAB PO SCH (20:55)
[2023-01-18] MEDS: Cefepime 1 GM in Sodium Chloride 0.9% 100 ML IVPB SCH ×3 (05:27→21:07)
[2023-01-18] MEDS: Aspirin 81 mg Enteric Coated Tablet PO SCH (08:23)
[2023-01-18] MEDS: Floranex 1 GM Packet PO SCH (08:23)
[2023-01-18] MEDS: Calcium Carbonate 500 MG TAB PO SCH (08:23)
[2023-01-18] MEDS: Alogliptin 25 MG TAB PO SCH (08:23)
[2023-01-18] MEDS: metFORMIN 500 MG TAB PO SCH ×2 (08:24→17:06)
[2023-01-18] MEDS: Multivit, Therapeutic 1 TAB PO SCH (08:24)
[2023-01-18] MEDS: Hydrocortisone 10 mg Tablet PO SCH ×2 (08:24→21:06)
[2023-01-18] MEDS: Carbidopa/Levodopa 25-100 mg Tablet PO SCH ×3 (08:24→21:05)
[2023-01-18] MEDS: Magnesium Oxide 400 MG TAB PO SCH ×2 (08:24→21:06)
[2023-01-18] MEDS: Cyanocobalamin (Vitamin B-12) 1,000 MCG TAB PO SCH (08:24)
[2023-01-18] MEDS: SIROLIMUS 0.5 MG TABLET PO SCH (08:25)
[2023-01-18] MEDS: SIROLIMUS 1 MG TABLET PO SCH (08:25)
[2023-01-18] MEDS: Tamsulosin HCl 0.4 MG CAP PO SCH (17:06)
[2023-01-18] MEDS: Mirtazapine 15 MG TAB PO SCH (21:05)
[2023-01-18] MEDS: Atorvastatin Calcium 40 MG TAB PO SCH (21:05)
[2023-01-19 05:15] LABS: Anion Gap 15 mmol/L (10-20); BUN (Urea Nitrogen) 18 mg/dL (8.4-25.7); Calc. Creatinine Clearance 77 mL/min (70-130); Calcium 9.6 mg/dL (7.8-10.44); Carbon Dioxide 26 mmol/L (23-31); Chloride 104 mmol/L (98-107); Estimated GFR 99; Glucose 101 mg/dL (80-115); Potassium 4.2 mmol/L (3.5-5.1); Sodium 141 mmol/L (136-145)
[2023-01-19 05:19] LABS: #Basophils 0.1 thou/uL (0.0-0.2); #Eosinphils 0.2 thou/uL (0.0-0.7); #Lymphocytes 1.3 thou/uL (1.20-3.40); #Monocytes 0.7 thou/uL (0.11-0.59); #Neutrophils 3.7 thou/uL (1.40-6.50); %Basophils 1.6 % (0.0-1.0); %Eosinophils 2.8 % (0.0-10.0); %Lymphocytes 22.2 % (21.0-51.0); %Monocytes 11.9 % (0.0-10.0); %Neutrophils 61.6 % (42.0-75.0); Hemoglobin 10.7 g/dL (14.0-18.0); Mean Corpuscular HGB CONC 31.6 g/dL (32.0-36.0); Mean Corpuscular Hemoglobin 26.7 pg (27.0-31.0); Mean Corpuscular Volume 84.6 fl (78.0-98.0); Mean Platelet Volume 9.2 fL (7.4-10.4); Platelet Count 145 10x3/uL (130-400); RBC Distribution Width 18.1 % (11.5-14.5); Red Blood Cell (RBC) Count 3.99 mill/uL (4.70-6.10); White Blood Cell (WBC) Count 6.1 10x3/uL (4.8-10.8)
[2023-01-19] MEDS: Cefepime 1 GM in Sodium Chloride 0.9% 100 ML IVPB SCH ×3 (05:26→21:46)
[2023-01-19] MEDS: Loperamide HCl 2 MG CAP PO PRN ×2 (05:26→09:27)
[2023-01-19] MEDS: metFORMIN 500 MG TAB PO SCH ×2 (09:27→17:13)
[2023-01-19] MEDS: Ergocalciferol 1.25 MG(50,000 UNITS) CAP PO SCH (09:27)
[2023-01-19] MEDS: Cyanocobalamin (Vitamin B-12) 1,000 MCG TAB PO SCH (09:27)
[2023-01-19] MEDS: Floranex 1 GM Packet PO SCH (09:27)
[2023-01-19] MEDS: Multivit, Therapeutic 1 TAB PO SCH (09:28)
[2023-01-19] MEDS: Hydrocortisone 10 mg Tablet PO SCH ×2 (09:28→21:48)
[2023-01-19] MEDS: Carbidopa/Levodopa 25-100 mg Tablet PO SCH ×3 (09:29→21:47)
[2023-01-19] MEDS: Magnesium Oxide 400 MG TAB PO SCH ×2 (09:29→21:47)
[2023-01-19] MEDS: Aspirin 81 mg Enteric Coated Tablet PO SCH (09:29)
[2023-01-19] MEDS: Sulfameth/Trimethoprim DS 800-160mg TAB PO SCH (09:30)
[2023-01-19] MEDS: Calcium Carbonate 500 MG TAB PO SCH (09:30)
[2023-01-19] MEDS: Alogliptin 25 MG TAB PO SCH (09:30)
[2023-01-19] MEDS: SIROLIMUS 1 MG TABLET PO SCH (09:31)
[2023-01-19] MEDS: SIROLIMUS 0.5 MG TABLET PO SCH (09:32)
[2023-01-19] MEDS: Tamsulosin HCl 0.4 MG CAP PO SCH (17:13)
[2023-01-19] MEDS: Atorvastatin Calcium 40 MG TAB PO SCH (21:47)
[2023-01-19] MEDS: Mirtazapine 15 MG TAB PO SCH (21:48)
[2023-01-20] MEDS: Cefepime 1 GM in Sodium Chloride 0.9% 100 ML IVPB SCH ×3 (05:11→21:09)
[2023-01-20] MEDS: SIROLIMUS 0.5 MG TABLET PO SCH (08:47)
[2023-01-20] MEDS: SIROLIMUS 1 MG TABLET PO SCH (08:47)
[2023-01-20] MEDS: Floranex 1 GM Packet PO SCH (08:48)
[2023-01-20] MEDS: Cyanocobalamin (Vitamin B-12) 1,000 MCG TAB PO SCH (08:48)
[2023-01-20] MEDS: Magnesium Oxide 400 MG TAB PO SCH ×2 (08:48→21:10)
[2023-01-20] MEDS: Calcium Carbonate 500 MG TAB PO SCH (08:49)
[2023-01-20] MEDS: Multivit, Therapeutic 1 TAB PO SCH (08:49)
[2023-01-20] MEDS: Aspirin 81 mg Enteric Coated Tablet PO SCH (08:49)
[2023-01-20] MEDS: Hydrocortisone 10 mg Tablet PO SCH ×2 (08:49→21:10)
[2023-01-20] MEDS: metFORMIN 500 MG TAB PO SCH ×2 (08:49→17:29)
[2023-01-20] MEDS: Alogliptin 25 MG TAB PO SCH (08:49)
[2023-01-20] MEDS: Carbidopa/Levodopa 25-100 mg Tablet PO SCH ×3 (08:49→21:10)
[2023-01-20] MEDS: Tamsulosin HCl 0.4 MG CAP PO SCH (17:29)
[2023-01-20] MEDS: Mirtazapine 15 MG TAB PO SCH (21:09)
[2023-01-20] MEDS: Atorvastatin Calcium 40 MG TAB PO SCH (21:10)
[2023-01-21] MEDS: Cefepime 1 GM in Sodium Chloride 0.9% 100 ML IVPB SCH ×3 (05:14→21:44)
[2023-01-21] MEDS: SIROLIMUS 0.5 MG TABLET PO SCH (08:44)
[2023-01-21] MEDS: SIROLIMUS 1 MG TABLET PO SCH (08:45)
[2023-01-21] MEDS: Hydrocortisone 10 mg Tablet PO SCH ×2 (08:46→21:44)
[2023-01-21] MEDS: Calcium Carbonate 500 MG TAB PO SCH (08:47)
[2023-01-21] MEDS: Carbidopa/Levodopa 25-100 mg Tablet PO SCH ×3 (08:48→21:45)
[2023-01-21] MEDS: Multivit, Therapeutic 1 TAB PO SCH (08:48)
[2023-01-21] MEDS: Sulfameth/Trimethoprim DS 800-160mg TAB PO SCH (08:48)
[2023-01-21] MEDS: Floranex 1 GM Packet PO SCH (08:48)
[2023-01-21] MEDS: Magnesium Oxide 400 MG TAB PO SCH ×2 (08:48→21:44)
[2023-01-21] MEDS: metFORMIN 500 MG TAB PO SCH ×2 (08:49→17:18)
[2023-01-21] MEDS: Alogliptin 25 MG TAB PO SCH (08:49)
[2023-01-21] MEDS: Cyanocobalamin (Vitamin B-12) 1,000 MCG TAB PO SCH (08:49)
[2023-01-21] MEDS: Tamsulosin HCl 0.4 MG CAP PO SCH (17:18)
[2023-01-21] MEDS: Atorvastatin Calcium 40 MG TAB PO SCH (21:44)
[2023-01-21] MEDS: Mirtazapine 15 MG TAB PO SCH (21:45)
[2023-01-22] MEDS: Sodium Chloride 0.9% 1,000 ML IV SCH ×3 (00:24→10:33)
[2023-01-22] MEDS: Cefepime 1 GM in Sodium Chloride 0.9% 100 ML IVPB SCH ×3 (05:22→21:50)
[2023-01-22] MEDS: metFORMIN 500 MG TAB PO SCH ×2 (09:05→17:37)
[2023-01-22] MEDS: Alogliptin 25 MG TAB PO SCH (09:05)
[2023-01-22] MEDS: Cyanocobalamin (Vitamin B-12) 1,000 MCG TAB PO SCH (09:05)
[2023-01-22] MEDS: Magnesium Oxide 400 MG TAB PO SCH ×2 (09:05→21:49)
[2023-01-22] MEDS: Calcium Carbonate 500 MG TAB PO SCH (09:05)
[2023-01-22] MEDS: Carbidopa/Levodopa 25-100 mg Tablet PO SCH ×3 (09:05→21:49)
[2023-01-22] MEDS: Floranex 1 GM Packet PO SCH (09:05)
[2023-01-22] MEDS: Multivit, Therapeutic 1 TAB PO SCH (09:06)
[2023-01-22] MEDS: Hydrocortisone 10 mg Tablet PO SCH ×2 (09:06→21:49)
[2023-01-22] MEDS: SIROLIMUS 0.5 MG TABLET PO SCH (09:08)
[2023-01-22] MEDS: SIROLIMUS 1 MG TABLET PO SCH (09:09)
[2023-01-22] MEDS: Tamsulosin HCl 0.4 MG CAP PO SCH (17:37)
[2023-01-22] MEDS: Atorvastatin Calcium 40 MG TAB PO SCH (21:48)
[2023-01-22] MEDS: Mirtazapine 15 MG TAB PO SCH (21:49)
[2023-01-23] MEDS: Cefepime 1 GM in Sodium Chloride 0.9% 100 ML IVPB SCH ×3 (05:23→21:31)
[2023-01-23] MEDS: Hydrocortisone 10 mg Tablet PO SCH ×2 (09:46→21:30)
[2023-01-23] MEDS: Aspirin 81 mg Enteric Coated Tablet PO SCH (09:47)
[2023-01-23] MEDS: metFORMIN 500 MG TAB PO SCH ×2 (09:47→18:14)
[2023-01-23] MEDS: Magnesium Oxide 400 MG TAB PO SCH ×2 (09:47→21:30)
[2023-01-23] MEDS: Cyanocobalamin (Vitamin B-12) 1,000 MCG TAB PO SCH (09:47)
[2023-01-23] MEDS: Carbidopa/Levodopa 25-100 mg Tablet PO SCH ×3 (09:48→21:30)
[2023-01-23] MEDS: Alogliptin 25 MG TAB PO SCH (09:48)
[2023-01-23] MEDS: Floranex 1 GM Packet PO SCH (09:49)
[2023-01-23] MEDS: Multivit, Therapeutic 1 TAB PO SCH (09:49)
[2023-01-23] MEDS: Calcium Carbonate 500 MG TAB PO SCH (09:50)
[2023-01-23] MEDS: Sulfameth/Trimethoprim DS 800-160mg TAB PO SCH (09:54)
[2023-01-23] MEDS: SIROLIMUS 1 MG TABLET PO SCH (09:54)
[2023-01-23] MEDS: SIROLIMUS 0.5 MG TABLET PO SCH (09:55)
[2023-01-23] MEDS: Loperamide HCl 2 MG CAP PO PRN ×2 (11:40→14:44)
[2023-01-23] MEDS: Tamsulosin HCl 0.4 MG CAP PO SCH (18:15)
[2023-01-23] MEDS: Atorvastatin Calcium 40 MG TAB PO SCH (21:30)
[2023-01-23] MEDS: Mirtazapine 15 MG TAB PO SCH (21:32)
[2023-01-24] MEDS: Cefepime 1 GM in Sodium Chloride 0.9% 100 ML IVPB SCH ×3 (05:13→21:52)
[2023-01-24] MEDS: SIROLIMUS 1 MG TABLET PO SCH (09:36)
[2023-01-24] MEDS: SIROLIMUS 0.5 MG TABLET PO SCH (09:37)
[2023-01-24] MEDS: Floranex 1 GM Packet PO SCH (09:37)
[2023-01-24] MEDS: Aspirin 81 mg Enteric Coated Tablet PO SCH (09:38)
[2023-01-24] MEDS: Calcium Carbonate 500 MG TAB PO SCH (09:38)
[2023-01-24] MEDS: Alogliptin 25 MG TAB PO SCH (09:38)
[2023-01-24] MEDS: Cyanocobalamin (Vitamin B-12) 1,000 MCG TAB PO SCH (09:38)
[2023-01-24] MEDS: metFORMIN 500 MG TAB PO SCH ×2 (09:38→17:08)
[2023-01-24] MEDS: Carbidopa/Levodopa 25-100 mg Tablet PO SCH ×3 (09:39→21:53)
[2023-01-24] MEDS: Magnesium Oxide 400 MG TAB PO SCH ×2 (09:39→21:51)
[2023-01-24] MEDS: Hydrocortisone 10 mg Tablet PO SCH ×2 (09:39→21:52)
[2023-01-24] MEDS: Multivit, Therapeutic 1 TAB PO SCH (09:39)
[2023-01-24] MEDS: Tamsulosin HCl 0.4 MG CAP PO SCH (17:08)
[2023-01-24] MEDS: Atorvastatin Calcium 40 MG TAB PO SCH (21:51)
[2023-01-24] MEDS: Mirtazapine 15 MG TAB PO SCH (21:52)
[2023-01-25] MEDS: Cefepime 1 GM in Sodium Chloride 0.9% 100 ML IVPB SCH ×3 (05:27→21:03)
[2023-01-25] MEDS: SIROLIMUS 1 MG TABLET PO SCH (09:10)
[2023-01-25] MEDS: SIROLIMUS 0.5 MG TABLET PO SCH (09:10)
[2023-01-25] MEDS: Hydrocortisone 10 mg Tablet PO SCH ×2 (09:11→20:48)
[2023-01-25] MEDS: Carbidopa/Levodopa 25-100 mg Tablet PO SCH ×3 (09:13→20:48)
[2023-01-25] MEDS: Floranex 1 GM Packet PO SCH (09:13)
[2023-01-25] MEDS: Calcium Carbonate 500 MG TAB PO SCH (09:13)
[2023-01-25] MEDS: Magnesium Oxide 400 MG TAB PO SCH ×2 (09:14→20:46)
[2023-01-25] MEDS: Alogliptin 25 MG TAB PO SCH (09:14)
[2023-01-25] MEDS: metFORMIN 500 MG TAB PO SCH ×2 (09:14→17:14)
[2023-01-25] MEDS: Multivit, Therapeutic 1 TAB PO SCH (09:14)
[2023-01-25] MEDS: Aspirin 81 mg Enteric Coated Tablet PO SCH (09:14)
[2023-01-25] MEDS: Cyanocobalamin (Vitamin B-12) 1,000 MCG TAB PO SCH (09:15)
[2023-01-25] MEDS: Tamsulosin HCl 0.4 MG CAP PO SCH (17:14)
[2023-01-25] MEDS: Atorvastatin Calcium 40 MG TAB PO SCH (20:46)
[2023-01-25] MEDS: Mirtazapine 15 MG TAB PO SCH (20:47)
[2023-01-26] MEDS: Cefepime 1 GM in Sodium Chloride 0.9% 100 ML IVPB SCH ×3 (05:24→21:48)
[2023-01-26 05:57] LABS: #Basophils 0.1 thou/uL (0.0-0.2); #Eosinphils 0.1 thou/uL (0.0-0.7); #Lymphocytes 1.3 thou/uL (1.20-3.40); #Monocytes 0.6 thou/uL (0.11-0.59); #Neutrophils 3.7 thou/uL (1.40-6.50); %Basophils 0.9 % (0.0-1.0); %Eosinophils 2.3 % (0.0-10.0); %Lymphocytes 22.8 % (21.0-51.0); %Monocytes 10.8 % (0.0-10.0); %Neutrophils 63.2 % (42.0-75.0); Mean Corpuscular HGB CONC 31.7 g/dL (32.0-36.0); Mean Corpuscular Hemoglobin 26.4 pg (27.0-31.0); Mean Corpuscular Volume 83.3 fl (78.0-98.0); Platelet Count 143 10x3/uL (130-400); RBC Distribution Width 17.6 % (11.5-14.5); Red Blood Cell (RBC) Count 4.16 mill/uL (4.70-6.10); White Blood Cell (WBC) Count 5.8 10x3/uL (4.8-10.8)
[2023-01-26] MEDS: Loperamide HCl 2 MG CAP PO PRN ×3 (05:57→13:08)
[2023-01-26 06:11] LABS: Anion Gap 14 mmol/L (10-20); BUN (Urea Nitrogen) 11 mg/dL (8.4-25.7); Calc. Creatinine Clearance 88 mL/min (70-130); Calcium 9.4 mg/dL (7.8-10.44); Carbon Dioxide 27 mmol/L (23-31); Chloride 106 mmol/L (98-107); Estimated GFR 103; Glucose 110 mg/dL (80-115); Potassium 3.7 mmol/L (3.5-5.1); Sodium 143 mmol/L (136-145)
[2023-01-26] MEDS: SIROLIMUS 1 MG TABLET PO SCH (08:56)
[2023-01-26] MEDS: SIROLIMUS 0.5 MG TABLET PO SCH (08:56)
[2023-01-26] MEDS: Magnesium Oxide 400 MG TAB PO SCH ×2 (08:57→21:49)
[2023-01-26] MEDS: metFORMIN 500 MG TAB PO SCH ×2 (08:57→16:40)
[2023-01-26] MEDS: Ergocalciferol 1.25 MG(50,000 UNITS) CAP PO SCH (08:57)
[2023-01-26] MEDS: Carbidopa/Levodopa 25-100 mg Tablet PO SCH ×3 (08:57→21:49)
[2023-01-26] MEDS: Alogliptin 25 MG TAB PO SCH (08:57)
[2023-01-26] MEDS: Floranex 1 GM Packet PO SCH (08:57)
[2023-01-26] MEDS: Sulfameth/Trimethoprim DS 800-160mg TAB PO SCH (08:57)
[2023-01-26] MEDS: Calcium Carbonate 500 MG TAB PO SCH (08:58)
[2023-01-26] MEDS: Aspirin 81 mg Enteric Coated Tablet PO SCH (08:58)
[2023-01-26] MEDS: Cyanocobalamin (Vitamin B-12) 1,000 MCG TAB PO SCH (08:58)
[2023-01-26] MEDS: Multivit, Therapeutic 1 TAB PO SCH (08:58)
[2023-01-26] MEDS: Hydrocortisone 10 mg Tablet PO SCH ×2 (08:58→21:49)
[2023-01-26] MEDS: Tamsulosin HCl 0.4 MG CAP PO SCH (16:40)
[2023-01-26] MEDS: Mirtazapine 15 MG TAB PO SCH (21:49)
[2023-01-26] MEDS: Atorvastatin Calcium 40 MG TAB PO SCH (21:49)
[2023-01-27] MEDS: Cefepime 1 GM in Sodium Chloride 0.9% 100 ML IVPB SCH ×3 (05:17→21:22)
[2023-01-27] MEDS: SIROLIMUS 1 MG TABLET PO SCH (08:47)
[2023-01-27] MEDS: SIROLIMUS 0.5 MG TABLET PO SCH (08:48)
[2023-01-27] MEDS: Alogliptin 25 MG TAB PO SCH (08:48)
[2023-01-27] MEDS: metFORMIN 500 MG TAB PO SCH ×2 (08:48→17:09)
[2023-01-27] MEDS: Multivit, Therapeutic 1 TAB PO SCH (08:48)
[2023-01-27] MEDS: Hydrocortisone 10 mg Tablet PO SCH ×2 (08:49→21:23)
[2023-01-27] MEDS: Cyanocobalamin (Vitamin B-12) 1,000 MCG TAB PO SCH (08:49)
[2023-01-27] MEDS: Aspirin 81 mg Enteric Coated Tablet PO SCH (08:49)
[2023-01-27] MEDS: Floranex 1 GM Packet PO SCH (08:49)
[2023-01-27] MEDS: Calcium Carbonate 500 MG TAB PO SCH (08:49)
[2023-01-27] MEDS: Carbidopa/Levodopa 25-100 mg Tablet PO SCH ×3 (08:49→21:23)
[2023-01-27] MEDS: Magnesium Oxide 400 MG TAB PO SCH ×2 (08:49→21:23)
[2023-01-27] MEDS: Tamsulosin HCl 0.4 MG CAP PO SCH (17:09)
[2023-01-27] MEDS: Atorvastatin Calcium 40 MG TAB PO SCH (21:23)
[2023-01-27] MEDS: Mirtazapine 15 MG TAB PO SCH (21:23)
[2023-01-28] MEDS: Cefepime 1 GM in Sodium Chloride 0.9% 100 ML IVPB SCH ×3 (05:18→22:04)
[2023-01-28] MEDS: SIROLIMUS 1 MG TABLET PO SCH (08:55)
[2023-01-28] MEDS: Calcium Carbonate 500 MG TAB PO SCH (08:56)
[2023-01-28] MEDS: Floranex 1 GM Packet PO SCH (08:56)
[2023-01-28] MEDS: Magnesium Oxide 400 MG TAB PO SCH ×2 (08:56→22:06)
[2023-01-28] MEDS: Cyanocobalamin (Vitamin B-12) 1,000 MCG TAB PO SCH (08:56)
[2023-01-28] MEDS: Carbidopa/Levodopa 25-100 mg Tablet PO SCH ×3 (08:57→22:05)
[2023-01-28] MEDS: Aspirin 81 mg Enteric Coated Tablet PO SCH (08:57)
[2023-01-28] MEDS: Alogliptin 25 MG TAB PO SCH (08:57)
[2023-01-28] MEDS: metFORMIN 500 MG TAB PO SCH ×2 (08:57→17:04)
[2023-01-28] MEDS: Sulfameth/Trimethoprim DS 800-160mg TAB PO SCH (08:58)
[2023-01-28] MEDS: Hydrocortisone 10 mg Tablet PO SCH ×2 (08:58→22:05)
[2023-01-28] MEDS: SIROLIMUS 0.5 MG TABLET PO SCH (08:59)
[2023-01-28] MEDS: Multivit, Therapeutic 1 TAB PO SCH (09:05)
[2023-01-28] MEDS: Tamsulosin HCl 0.4 MG CAP PO SCH (17:04)
[2023-01-28] MEDS: Mirtazapine 15 MG TAB PO SCH (22:05)
[2023-01-28] MEDS: Atorvastatin Calcium 40 MG TAB PO SCH (22:06)
[2023-01-29] MEDS: Cefepime 1 GM in Sodium Chloride 0.9% 100 ML IVPB SCH ×3 (05:23→21:07)
[2023-01-29] MEDS: Alogliptin 25 MG TAB PO SCH (08:41)
[2023-01-29] MEDS: Hydrocortisone 10 mg Tablet PO SCH ×2 (08:41→21:06)
[2023-01-29] MEDS: Cyanocobalamin (Vitamin B-12) 1,000 MCG TAB PO SCH (08:41)
[2023-01-29] MEDS: Floranex 1 GM Packet PO SCH (08:41)
[2023-01-29] MEDS: Aspirin 81 mg Enteric Coated Tablet PO SCH (08:42)
[2023-01-29] MEDS: Magnesium Oxide 400 MG TAB PO SCH ×2 (08:43→21:07)
[2023-01-29] MEDS: Multivit, Therapeutic 1 TAB PO SCH (08:43)
[2023-01-29] MEDS: metFORMIN 500 MG TAB PO SCH ×2 (08:44→17:07)
[2023-01-29] MEDS: Carbidopa/Levodopa 25-100 mg Tablet PO SCH ×3 (08:45→21:07)
[2023-01-29] MEDS: SIROLIMUS 1 MG TABLET PO SCH (08:45)
[2023-01-29] MEDS: SIROLIMUS 0.5 MG TABLET PO SCH (08:46)
[2023-01-29] MEDS: Calcium Carbonate 500 MG TAB PO SCH (08:46)
[2023-01-29] MEDS: Tamsulosin HCl 0.4 MG CAP PO SCH (17:08)
[2023-01-29] MEDS: Atorvastatin Calcium 40 MG TAB PO SCH (21:07)
[2023-01-29] MEDS: Mirtazapine 15 MG TAB PO SCH (21:07)
[2023-01-30] MEDS: Cefepime 1 GM in Sodium Chloride 0.9% 100 ML IVPB SCH ×3 (05:00→21:17)
[2023-01-30] MEDS: Floranex 1 GM Packet PO SCH (09:21)
[2023-01-30] MEDS: Hydrocortisone 10 mg Tablet PO SCH ×2 (09:22→21:17)
[2023-01-30] MEDS: Magnesium Oxide 400 MG TAB PO SCH ×2 (09:23→21:18)
[2023-01-30] MEDS: Aspirin 81 mg Enteric Coated Tablet PO SCH (09:24)
[2023-01-30] MEDS: Calcium Carbonate 500 MG TAB PO SCH (09:24)
[2023-01-30] MEDS: Multivit, Therapeutic 1 TAB PO SCH (09:24)
[2023-01-30] MEDS: Alogliptin 25 MG TAB PO SCH (09:25)
[2023-01-30] MEDS: Cyanocobalamin (Vitamin B-12) 1,000 MCG TAB PO SCH (09:25)
[2023-01-30] MEDS: Carbidopa/Levodopa 25-100 mg Tablet PO SCH ×3 (09:25→21:18)
[2023-01-30] MEDS: metFORMIN 500 MG TAB PO SCH ×2 (09:25→16:44)
[2023-01-30] MEDS: SIROLIMUS 1 MG TABLET PO SCH (09:26)
[2023-01-30] MEDS: SIROLIMUS 0.5 MG TABLET PO SCH (09:27)
[2023-01-30] MEDS: Sulfameth/Trimethoprim DS 800-160mg TAB PO SCH (09:32)
[2023-01-30] MEDS: Tamsulosin HCl 0.4 MG CAP PO SCH (16:45)
[2023-01-30] MEDS: Atorvastatin Calcium 40 MG TAB PO SCH (21:18)
[2023-01-30] MEDS: Mirtazapine 15 MG TAB PO SCH (21:18)
[2023-01-31] MEDS: Cefepime 1 GM in Sodium Chloride 0.9% 100 ML IVPB SCH ×3 (05:04→21:21)
[2023-01-31] MEDS: SIROLIMUS 0.5 MG TABLET PO SCH (08:54)
[2023-01-31] MEDS: SIROLIMUS 1 MG TABLET PO SCH (08:54)
[2023-01-31] MEDS: Alogliptin 25 MG TAB PO SCH (08:55)
[2023-01-31] MEDS: Magnesium Oxide 400 MG TAB PO SCH ×2 (08:55→21:22)
[2023-01-31] MEDS: Carbidopa/Levodopa 25-100 mg Tablet PO SCH ×3 (08:55→21:22)
[2023-01-31] MEDS: Calcium Carbonate 500 MG TAB PO SCH (08:55)
[2023-01-31] MEDS: Cyanocobalamin (Vitamin B-12) 1,000 MCG TAB PO SCH (08:55)
[2023-01-31] MEDS: metFORMIN 500 MG TAB PO SCH ×2 (08:55→17:04)
[2023-01-31] MEDS: Aspirin 81 mg Enteric Coated Tablet PO SCH (08:56)
[2023-01-31] MEDS: Multivit, Therapeutic 1 TAB PO SCH (08:56)
[2023-01-31] MEDS: Hydrocortisone 10 mg Tablet PO SCH ×2 (08:56→21:22)
[2023-01-31] MEDS: Floranex 1 GM Packet PO SCH (08:56)
[2023-01-31] MEDS: Tamsulosin HCl 0.4 MG CAP PO SCH (17:04)
[2023-01-31] MEDS: Mirtazapine 15 MG TAB PO SCH (21:22)
[2023-01-31] MEDS: Atorvastatin Calcium 40 MG TAB PO SCH (21:22)
[2023-02-01] MEDS: Cefepime 1 GM in Sodium Chloride 0.9% 100 ML IVPB SCH ×3 (05:23→20:33)
[2023-02-01] MEDS: SIROLIMUS 0.5 MG TABLET PO SCH (08:42)
[2023-02-01] MEDS: Alogliptin 25 MG TAB PO SCH (08:43)
[2023-02-01] MEDS: SIROLIMUS 1 MG TABLET PO SCH (08:43)
[2023-02-01] MEDS: Multivit, Therapeutic 1 TAB PO SCH (08:44)
[2023-02-01] MEDS: Hydrocortisone 10 mg Tablet PO SCH ×2 (08:44→20:32)
[2023-02-01] MEDS: Magnesium Oxide 400 MG TAB PO SCH ×2 (08:44→20:31)
[2023-02-01] MEDS: Carbidopa/Levodopa 25-100 mg Tablet PO SCH ×3 (08:44→20:32)
[2023-02-01] MEDS: metFORMIN 500 MG TAB PO SCH ×2 (08:44→17:17)
[2023-02-01] MEDS: Calcium Carbonate 500 MG TAB PO SCH (08:45)
[2023-02-01] MEDS: Cyanocobalamin (Vitamin B-12) 1,000 MCG TAB PO SCH (08:45)
[2023-02-01] MEDS: Floranex 1 GM Packet PO SCH (08:45)
[2023-02-01] MEDS: Aspirin 81 mg Enteric Coated Tablet PO SCH (08:48)
[2023-02-01] MEDS: Loperamide HCl 2 MG CAP PO PRN ×2 (11:31→14:50)
[2023-02-01] MEDS: Loratadine 10 MG TAB PO PRN (14:50)
[2023-02-01] MEDS: Tamsulosin HCl 0.4 MG CAP PO SCH (17:17)
[2023-02-01] MEDS: Mirtazapine 15 MG TAB PO SCH (20:31)
[2023-02-01] MEDS: Atorvastatin Calcium 40 MG TAB PO SCH (20:32)
[2023-02-02 05:20] LABS: #Basophils 0.1 thou/uL (0.0-0.2); #Eosinphils 0.1 thou/uL (0.0-0.7); #Lymphocytes 1.5 thou/uL (1.20-3.40); #Monocytes 0.7 thou/uL (0.11-0.59); #Neutrophils 4.3 thou/uL (1.40-6.50); %Basophils 1.6 % (0.0-1.0); %Eosinophils 1.9 % (0.0-10.0); %Lymphocytes 22.5 % (21.0-51.0); %Monocytes 10.6 % (0.0-10.0); %Neutrophils 63.4 % (42.0-75.0); Hemoglobin 10.9 g/dL (14.0-18.0); Mean Corpuscular HGB CONC 31.9 g/dL (32.0-36.0); Mean Corpuscular Hemoglobin 26.9 pg (27.0-31.0); Mean Corpuscular Volume 84.3 fl (78.0-98.0); Mean Platelet Volume 8.9 fL (7.4-10.4); Platelet Count 146 10x3/uL (130-400); RBC Distribution Width 17.6 % (11.5-14.5); Red Blood Cell (RBC) Count 4.06 mill/uL (4.70-6.10); White Blood Cell (WBC) Count 6.7 10x3/uL (4.8-10.8)
[2023-02-02 05:37] LABS: Anion Gap 16 mmol/L (10-20); BUN (Urea Nitrogen) 15 mg/dL (8.4-25.7); Calc. Creatinine Clearance 81 mL/min (70-130); Calcium 9.5 mg/dL (7.8-10.44); Carbon Dioxide 25 mmol/L (23-31); Chloride 105 mmol/L (98-107); Estimated GFR 100; Glucose 118 mg/dL (80-115); Potassium 3.7 mmol/L (3.5-5.1); Sodium 142 mmol/L (136-145)
[2023-02-02 06:02] VITALS: BP 117/85; TEMP 97.7
[2023-02-02] MEDS: SIROLIMUS 0.5 MG TABLET PO SCH (08:47)
[2023-02-02] MEDS: SIROLIMUS 1 MG TABLET PO SCH (08:47)
[2023-02-02] MEDS: Sulfameth/Trimethoprim DS 800-160mg TAB PO SCH (08:48)
[2023-02-02] MEDS: metFORMIN 500 MG TAB PO SCH (08:48)
[2023-02-02] MEDS: Ergocalciferol 1.25 MG(50,000 UNITS) CAP PO SCH (08:48)
[2023-02-02] MEDS: Cyanocobalamin (Vitamin B-12) 1,000 MCG TAB PO SCH (08:48)
[2023-02-02] MEDS: Hydrocortisone 10 mg Tablet PO SCH (08:49)
[2023-02-02] MEDS: Magnesium Oxide 400 MG TAB PO SCH (08:49)
[2023-02-02] MEDS: Alogliptin 25 MG TAB PO SCH (08:50)
[2023-02-02] MEDS: Aspirin 81 mg Enteric Coated Tablet PO SCH (08:50)
[2023-02-02] MEDS: Multivit, Therapeutic 1 TAB PO SCH (08:50)
[2023-02-02] MEDS: Carbidopa/Levodopa 25-100 mg Tablet PO SCH (08:50)
[2023-02-02] MEDS: Floranex 1 GM Packet PO SCH (08:50)
[2023-02-02] MEDS: Calcium Carbonate 500 MG TAB PO SCH (08:50)
== END 2023-02-02 11:28 | disposition home or self-care (01) | DRG 948 ==
LOC: BURMED 14:34
PROVIDERS: ADMIT Family Medicine; ATTEND Family Medicine
DX: R53.1 Weakness (principal); Z94.1 Heart transplant status; Z94.0 Kidney transplant status; N39.0 Urinary tract infection, site not specified; R53.81 Other malaise; E11.9 Type 2 diabetes mellitus without complications; G20 Parkinson's disease; E78.5 Hyperlipidemia, unspecified; I10 Essential (primary) hypertension; Z85.828 Personal history of other malignant neoplasm of skin; Z87.440 Personal history of urinary (tract) infections; Z98.52 Vasectomy status; Z90.5 Acquired absence of kidney; Z79.899 Other long term (current) drug therapy; Z79.82 Long term (current) use of aspirin; Z79.84 Long term (current) use of oral hypoglycemic drugs
CPT/HCPCS: 36415; 36416; 80048; 80053; 84132; 85025; 87324; 87449; J0692; J1815; J3490; J7050